=== PATIENT | female | born 1930 | race Caucasian/White ===

== ENCOUNTER 2017-01-19 17:14 | Emergency (ER) | payer MEDICARE ==
[~2017-01-19] VITALS: Ht 172.7 cm; Wt 59.1 kg
[~2017-01-19 17:14] MED LIST: WARF5TAB PO
[2017-01-19 17:44] VITALS: BP 162/91; PULSE 91; O2SAT 100
--- NOTE | 2017-01-19 18:05 | ED.REPORT ---
HPI-General Illness Date of Service Jan 19, 2017 ED Provider: Subhash Hagen DO Pt is a 86 year old female with a history of A-fib on Coumadin who presents to the ED complaining of worsening visual hallucinations onset 6 weeks ago. She c/ o associated nausea, increased confusion, and fatigue this week. She denies abdominal pain. The pt describes her hallucinations as "dwarf guys" on her house , stating that the hallucinations only appear at her house. Her daughter reports that the pt knew that her hallucinations were not real, and she wasn't afraid of them initially. However, the pt developed fear of her hallucinations today. Per the pt's daughter, the pt has experienced similar symptoms when she has had a UTI previously. The pt presented to the urgent care with her symptoms and she was referred to the ED for further evaluation after a negative UA was determined. Nursing Notes Stated Complaint: HALLUCINATIONS,DISORIENTATION Chief Complaint: General Complaint Nursing Notes Reviewed: Yes Allergies: Coded Allergies: Penicillins (Verified Allergy, Unknown, 06/09/14) Scheduled Nitrofurantoin Monohyd/M-Cryst (MacroBid) 100 Mg Capsule 100 MG PO BID Warfarin Sodium (Coumadin) 5 Mg Tablet 5 MG PO WETHSA Saturday, Saturday, , and Saturday Warfarin Sodium (Coumadin) 5 Mg Tablet 7.5 MG PO SUTUFR Saturday, Saturday, and Saturday. General Time Seen by MD: 18:05 Chief Complaint Other (hallucinations) Hx Obtained From: Patient, Daughter Arrived By: Walk-in Sudden in Onset?: No Onset Occurred: More than a week ago... (6 weeks) Symptom Duration: Intermittent Severity: Current: No pain currently Severity: Maximum: No pain Recent Healthcare: Recent doctor visit Similar Sx Previous: Yes Past Medical History Past Medical History UTI with delerium and vascular dementia symptoms Cataracts Reports: Stroke Reports: Atrial fibrillation Past Surgical History 4 hip replacements Family History Noncontributory Smoking History Former Smoker Social History The pt lives alone, but her daughters call every night and check in on her intermittently. Alcohol Use: Denies alcohol use Drug Use: Denies drug use Other Social History: Good social support, Lives alone, Ambulatory Status Independent Review of Systems Full Review of Systems Constitutional: Reports: Fatigue GI: Reports: Nausea, Denies: Abdominal pain Psychiatric: Reports: Confusion, Hallucinations, visual Complete sys rev & neg: except as marked. Physical Exam Vital Signs Vital Signs Date Time Temp Pulse Resp B/P Pulse Ox O2 Delivery O2 Flow Rate FiO2 01/19/17 21:45 36.6 90 20 170/95 99 Room Air 01/19/17 20:57 36.6 86 20 154/90 98 Room Air 01/19/17 17:44 36.7 91 162/91 100 Room Air Initial VS: Reviewed Head / Eyes: Atraumatic, Normocephalic Neck: Supple, Full range of motion Respiratory: Breath sounds normal, Clear to auscultation, No respiratory distress Abdomen / GI: Soft, Non-tender Extremities: Vascular intact, Neuro intact Skin: Warm, Dry, No cyanosis Neurologic: Alert, Oriented, Nonfocal Psychiatric: Mood/affect normal, Behavior normal General/Constitutional: Awake, Alert Cardiovascular: Heart rate NL, Heart sounds NL Heart Rate / Rhythm: Positive: Irreg irregular rhythm Interpretation & Diagnostics Lab Results Interpretation Result Diagram: 01/19/17 1835 01/19/17 1835 Test 01/19/17 18:35 01/19/17 19:15 White Blood Count 5.1th/mm3 (3.8-10.1) Red Blood Count 4.02mil/mm3 (3.90-5.20) Hemoglobin 13.2g/dL (12.0-15.6) Hematocrit 38.4% (35.0-46.0) Mean Corpuscular Volume 95.5fL (81-100) Mean Corpuscular Hemoglobin 32.8pg (27.0-35.0) Mean Corpuscular Hemoglobin Concent 34.4% (32.0-37.0) Red Cell Distribution Width 12.9% (12.3-15.4) Platelet Count 142bil/L (150-400) Neutrophils (%) (Auto) 64.4% (40-74) Lymphocytes (%) (Auto) 23.7% (14-46) Monocytes (%) (Auto) 9.7% (4-12) Eosinophils (%) (Auto) 1.2% (0-5) Basophils (%) (Auto) 0.8% (0-3) Sodium Level 134mEq/L (134-144) Potassium Level 4.2mEq/L (3.5-5.2) Chloride Level 96mEq/L (97-108) Carbon Dioxide Level 22mmol/L (18-29) Blood Urea Nitrogen 12mg/dL (8-27) Creatinine 0.75mg/dL (0.57-1.00) Estimat Glomerular Filtration Rate 105mL/min (>59) Glucose Level 96mg/dL (60-99) Calcium Level 9.3mg/dL (8.5-10.1) Total Bilirubin 0.8mg/dL (0.0-1.2) Aspartate Amino Transf (AST/SGOT) 22U/L (0-50) Alanine Aminotransferase (ALT/SGPT) 13U/L (0-32) Alkaline Phosphatase 44U/L (25-165) Total Protein 6.8g/dL (6.4-8.4) Albumin 3.9g/dL (3.4-5.0) Hold [place]urtado Top Tube Received (Received) Urine Color Yellow (YELLOW) Urine Appearance Hazy (CLEAR,HAZY) Urine pH 6.0 (5.0-8.0) Urine Specific [place] 1.020 (1.003-1.035) Urine Protein Negativemg/dL (NEG,TRACE) Urine Glucose (UA) Negativemg/dL (NEGATIVE) Urine Ketones Negativemg/dL (NEGATIVE) Urine Occult Blood Small (NEGATIVE) Urine Nitrite Negative (NEGATIVE) Urine Bilirubin Negative (NEGATIVE) Urine Urobilinogen Normalmg/dL (NORMAL) Urine Leukocyte Esterase Moderate (NEGATIVE) Urine RBC 0-2/hpf (0-2) Urine WBC 6-10/hpf (0-5) Urine Epithelial Cells Many/hpf (NONE-MOD) Urine Crystals None seen (NONE SEEN) Urine Bacteria Few/hpf (NONE-FEW) Urine Hyaline Casts None/lpf (NONE) Urine Granular Casts None seen (NONE SEEN) Urine Waxy Casts None seen (NONE SEEN) Urine Red Blood Cell Casts None seen (NONE SEEN) Urine White Blood Cell Casts None seen (NONE SEEN) Urine Mucus None seen (None Seen) Urine Trichomonas None seen (NONE SEEN) Urine Yeast None (NONE SEEN) Urinalysis Comment None Urine Culture Reflexed Indicated ECG Interpretation ECG Interpretation: Atrial fibrillation with a rate of 94 Left axis deviation Old anterior infarct No significant changes from 05/30/14 Time: 19:16 Interpreted by: ED physician ECG Interpretation: Atrial fibrillation with a rate of 100 Left anterior fascicular block Time: 19:38 Interpreted by: ED physician X-Ray Chest Interpretation Chest Xray Interpretation: IMPRESSION: Cardiomegaly as before, without acute cardiopulmonary disease. Dictated by: Michael Diego M.D. on 01/19/2017 at 20:02 View: Portable, 1 view Interpretation / Wet Read by: Interpret - Radiologist CT Head Interpretation IMPRESSION: 1. No acute intracranial abnormalities. 2. Nonacute right parietal lobe ischemic insult as before. 3. Widespread periventricular and deep white matter chronic small vessel ischemic change. Dictated by: Michael Diego M.D. on 01/19/2017 at 19:08 Study: Head CT no contrast Interpretation / Wet Read by: Interpret - Radiologist Re-Eval/Medical Decision Med Decision/Clinical Course 86-year-old female presenting with visual hallucinations which have occurred previously related to UTI. It appears today of her urine micro-that she has a UTI. She is treated with nitrofurantoin here and discharged with one-week prescription. I advised that she needs to follow up with her PCP within one week. Patient and daughter are in agreement. No other significant lab or imaging abnormalities noted. Source of Hx: Old records Time of Eval: 18:44 Re-Evaluation/Progress Note: Informed pt and her daughter of plan for imaging and labs. Pt and her daughter understand and agree with the plan. All questions addressed. Time of Eval: 21:10 Re-Evaluation/Progress Note: Pt rechecked. Informed pt of plan for discharge. Pt understands and agrees with plan for discharge. F/U instructions and RTER warnings given. All questions addressed. Counseled Regarding: Diagnosis, Lab results, Need for follow-up, When/why to return to ED Discharge & Departure Primary Impression: UTI (urinary tract infection) Urinary tract infection type: site unspecified Hematuria presence: without hematuria Qualified Code: N39.0 - Urinary tract infection, site not specified Additional Impression: Hallucination Disposition: Home Discharge Condition All VS Reviewed: Yes Condition: Stable Patient Instructions: Urinary Tract Infection in Women (ED), Urinary Traction Infection in Older Adults (ED) Additional Instructions: Thank you for entrusting us with your care and for your patience today. Your labs indicate that you have a urinary tract infection. This is likely causing your hallucination. Call your primary care provider on Saturday for a follow up appointment next week. Return to the Emergency Department for any new or concerning symptoms. Referrals: Mono Grimm MD (PCP) Scribe Attestation Portions of this note were transcribed by Shruti Doss. I, Dr. Hagen personally performed the history, physical exam and medical decision-making; I reviewed and confirmed the accuracy of the information in the transcribed note. Signed by: Flaquito Che, 01/19/17. copies to: Mono Grimm MD, Gary R DO Jan 19, 2017 18:05 Shruti Flores Jan 19, 2017 18:42
[2017-01-19 18:53] LABS: BASOPHILS % (AUTO) 0.8 % (0-3); EOSINOPHILS % (AUTO) 1.2 % (0-5); MONOCYTES % (AUTO) 9.7 % (4-12); Mean Corpuscular Hemoglobin 32.8 pg (27.0-35.0); Mean Corpuscular Volume 95.5 fL (81-100); NEUTROPHILS % (AUTO) 64.4 % (40-74); Platelet Count 142 bil/L (150-400)
--- NOTE | 2017-01-19 19:14 | DRSVH ---
PROCEDURE: CT BRAIN WITHOUT CONTRAST ([id number]) INDICATIONS: 86 year-old female with altered mental status and history of stroke. TECHNIQUE: Noncontrast 4.5 mm thick angled axial sections acquired from the foramen magnum to the vertex, with c oronal reformats. COMPARISON: [facility], CT, BRAIN W/O CONTRAST, 06/09/2014, 2:48. [facility] , CT, BRAIN W/O CONTRAST, 03/04/2013, 1:28. FINDINGS: Image quality: Excellent. CSF spaces: Basal cisterns are patent. No extra-axial fluid collections. The ventricles are symmet floyd in size and shape. Brain: No intracranial bleeds or masses. There are widespread periventricular and deep white matter chronic small vessel ischemic changes. Nonacute right parietal lobe ischemic insult is unchanged si nce 2014. There is intracranial internal carotid artery atherosclerosis. Skull and face: Calvarium and visualized facial bones appear intact, without suspicious lesions. Sinuses: Visualized sinuses and mastoids are clear. IMPRESSION: 1. No acute intracranial abnormalities. 2. Nonacute right parietal lobe ischemic insult as before. 3. Widespread periventricular and deep white matter chronic small vessel ischemic change. Dictated by: Michael Diego M.D. on 01/19/2017 at 19:08 Approved by: Michael Diego M.D. on 01/19/2017 at 19:13
[2017-01-19 19:31] LABS: APPEARANCE,URINE HAZY (CLEAR,HAZY); COLOR,URINE YELLOW (YELLOW); OCCULT BLOOD,URINE SMALL (NEGATIVE); UROBILINOGEN,URINE NORMAL (NORMAL)
--- NOTE | 2017-01-19 20:05 | DRSVH ---
PROCEDURE: X-RAY CHEST ONE VIEW, PORTABLE ([id number]) INDICATIONS: 86 year-old female with altered mental status. TECHNIQUE: One view of the chest was acquired. COMPARISON: [facility], , CHEST 1VW (PORTABLE), 06/09/2014, 2:37. [facility], CR, CHEST 1VW (PORTABLE), 03/04/2013, 0:00. FINDINGS: Surgical changes and devices: None. Lungs and pleura: No pleural effusions or pneumothorax. Lungs are clear. Mediastinum: Mediastinal contours appear normal. Cardiomegaly is unchanged. There is aortic atheros clerosis. Bones and chest wall: No suspicious bony lesions. There is asymmetric moderate left glenohumeral brea int degeneration. Overlying soft tissues appear unremarkable. IMPRESSION: Cardiomegaly as before, without acute cardiopulmonary disease. Dictated by: Michael Diego M.D. on 01/19/2017 at 20:02 Approved by: Michael Diego M.D. on 01/19/2017 at 20:03
[2017-01-19 20:57] VITALS: BP 154/90; PULSE 86; RESP 20; O2SAT 98
[2017-01-19] MEDS ORDERED: Nitrofurantoin Monohyd-Macrocryst 100 mg Capsule PO ONE (21:30)
[2017-01-19] MEDS ORDERED: NITR100 PO (21:33)
[2017-01-19 21:45] VITALS: BP 170/95; PULSE 90; RESP 20; O2SAT 99
[2017-01-20] MEDS ORDERED: _Nitrofurantoin Macrocrystal 100 mg Capsule PO SCH (08:30)
== END 2017-01-19 21:50 | disposition home or self-care (01) ==
LOC: SED 17:14
DX: N39.0 Urinary tract infection, site not specified (principal); R44.1 Visual hallucinations; I48.91 Unspecified atrial fibrillation; Z79.01 Long term (current) use of anticoagulants; Z86.73 Personal history of transient ischemic attack (TIA), and cerebral infarction without residual deficits; Z87.891 Personal history of nicotine dependence; Z88.0 Allergy status to penicillin
CPT/HCPCS: 36415; 70450; 71010; 80053; 81000; 81002; 85025; 87040; 87086; 93005; 99285; G0463